=== PATIENT | male | born 2000 | race Caucasian/White ===

== ENCOUNTER 2019-12-14 21:00 | Emergency (ER) | payer OTHER ==
[~2019-12-14] VITALS: Ht 177.8 cm; Wt 70.5 kg
[2019-12-14 21:05] VITALS: BP 134/99; TEMP 99
[2019-12-14] MEDS ORDERED: CRUTCHES MC (22:22)
[2019-12-14 22:24] VITALS: PULSE 83
== END 2019-12-14 22:34 | disposition home or self-care (01) ==
LOC: COL.ER 21:00
DX: S93.402A Sprain of unspecified ligament of left ankle, initial encounter (principal); X50.1XXA Overexertion from prolonged static or awkward postures, initial encounter; Y93.67 Activity, basketball